=== PATIENT | female | born 1960 | race Caucasian/White ===

== ENCOUNTER → 2017-09-30 07:58 | Emergency (ER) | payer OTHER ==
[~2017-09-30] VITALS: Ht 157.5 cm; Wt 56.7 kg
[~2017-09-30 07:58] MED LIST: ACET325 PO; ALBU90OI INH; ANORO ELLIPTA1 EACH; BUSP5 PO; Bactrim Ds Tab1 EACH PO; CRUTCH3 USE; ESCI20; ESCI20 PO; LAMO100 PO; LORA.5 PO; MONT10T; Mucinex600 MG PO; OXYACE5T PO; PHENY100ER PO; PRAM.5 PO; PROM25 PO; Prednisone20 MG PO; RANI150 PO; TIOT18 INH; VARE1 PO; Ventolin/Prove6.7 GM INH; Zithromax250 MG PO
== END | disposition home or self-care (01) ==
LOC: ER 07:58
DX: J44.1 Chronic obstructive pulmonary disease with (acute) exacerbation (principal); G40.909 Epilepsy, unspecified, not intractable, without status epilepticus; F17.200 Nicotine dependence, unspecified, uncomplicated; Z79.899 Other long term (current) drug therapy
CPT/HCPCS: 71046; 94640; 99283

== ENCOUNTER 2017-10-17 12:10 | Emergency (ER) | payer OTHER ==
[~2017-10-17] VITALS: Ht 157.5 cm; Wt 55.8 kg
[2017-10-17 12:43] LABS: BASOPHILS ABSOLUTE AUTO 0.04 K/mm3 (0.00-0.23); BASOPHILS PERCENT AUTO 0 % (0-2); EOSINOPHILS ABSOLUTE AUTO 0.03 K/mm3 (0.00-0.68); EOSINOPHILS PERCENT AUTO 0 % (0-6); Hematocrit 39.1 % (33.0-51.0); Hemoglobin 12.8 g/dL (11.5-16.0); IMMATURE GRAN ABSOLUTE AUTO 0.05 K/mm3 (0.00-0.10); IMMATURE GRAN PERCENT AUTO 0 % (0-1); LYMPHOCYTES ABSOLUTE AUTO 1.74 K/mm3 (0.84-5.20); LYMPHOCYTES PERCENT AUTO 12 % (21-46); MONOCYTES ABSOLUTE AUTO 0.78 K/mm3 (0.16-1.47); MONOCYTES PERCENT AUTO 5 % (4-13); Mean Corpuscular HGB 30.2 pg (26.0-34.0); Mean Corpuscular HGB Conc 32.7 g/dL (31.5-36.5); Mean Corpuscular Volume 92 fL (80-100); Mean Platelet Volume 9.7 fL (9.1-12.4); NEUTROPHILS ABSOLUTE AUTO 12.41 K/mm3 (1.96-9.15); NEUTROPHILS PERCENT AUTO 82 % (41-73); Platelet Count 201 K/mm3 (150-400); RDW Coefficient Variation 14.2 % (11.7-14.2); RDW Standard Deviation 48.5 fL (35.1-46.3); Red Blood Cell Count 4.24 M/mm3 (3.80-5.20); White Blood Cell Count 15.05 K/mm3 (4.00-11.30)
[2017-10-17 13:11] LABS: Alanine Aminotransfer (ALT/SGP 28 U/L (12-78); Albumin, Blood 3.5 g/dL (3.4-5.0); Albumin/Globulin Ratio 1.1 (0.8-1.8); Alk Phos 92 U/L (50-136); Anion Gap 7 mmol/L (6-16); Aspartate Aminotrans (AST/SGOT 26 U/L (12-37); Bilirubin, Total 0.4 mg/dL (0.1-1.0); Blood Urea Nitrogen 16 mg/dL (8-24); Bun/Creatinine Ratio 19.4 (12.0-20.0); CO2, Blood 29 mmol/L (21-32); Calcium, Blood 8.6 mg/dL (8.5-10.1); Chloride, Blood 109 mmol/L (98-108); Creatinine, Blood 0.83 mg/dL (0.40-1.00); Globulin, Blood 3.3 g/dL (2.2-4.0); Glomerular Filtration Rate >60 (60-); Glucose, Blood 104 mg/dL (70-99); Potassium, Blood 3.4 mmol/L (3.5-5.5); Sodium, Blood 145 mmol/L (136-145); Total Protein, Blood 6.8 g/dL (6.4-8.2); Troponin I 0.016 ng/mL (0.000-0.040)
[2017-10-17 13:22] LABS: PCO2 Arterial 44.8 mmHg (35-45); PO2 Arterial 74.8 mmHg (80-100)
[2017-10-17] MEDS ORDERED: Prednisone20 MG PO (13:27)
== END 2017-10-17 14:00 | disposition home or self-care (01) ==
LOC: ER 12:10
PROVIDERS: Emergency Medicine
DX: J44.1 Chronic obstructive pulmonary disease with (acute) exacerbation (principal); Z79.899 Other long term (current) drug therapy; Z79.52 Long term (current) use of systemic steroids; F17.200 Nicotine dependence, unspecified, uncomplicated
CPT/HCPCS: 36600; 71045; 80053; 82803; 84484; 85025; 93005; 93010; 94644; 99285-25

== ENCOUNTER 2018-05-17 03:35 | Inpatient (IN) | payer OTHER ==
[~2018-05-17] VITALS: Ht 157.5 cm; Wt 56.0 kg
[~2018-05-17 03:35] MED LIST changes: -ANORO ELLIPTA1 EACH; +ANORO ELLIPTA1 EACH INH; -ESCI20; -LAMO100 PO; +Lamictal150 MG PO; -MONT10T; +MONT10T PO
[2018-05-17 03:53] LABS: BASOPHILS ABSOLUTE AUTO 0.03 K/mm3 (0.00-0.23); BASOPHILS PERCENT AUTO 0 % (0-2); EOSINOPHILS ABSOLUTE AUTO 0.02 K/mm3 (0.00-0.68); EOSINOPHILS PERCENT AUTO 0 % (0-6); Hematocrit 40.4 % (33.0-51.0); IMMATURE GRAN ABSOLUTE AUTO 0.01 K/mm3 (0.00-0.10); IMMATURE GRAN PERCENT AUTO 0 % (0-1); LYMPHOCYTES ABSOLUTE AUTO 1.83 K/mm3 (0.84-5.20); LYMPHOCYTES PERCENT AUTO 25 % (21-46); MONOCYTES ABSOLUTE AUTO 0.56 K/mm3 (0.16-1.47); MONOCYTES PERCENT AUTO 8 % (4-13); Mean Corpuscular HGB 29.9 pg (26.0-34.0); Mean Corpuscular HGB Conc 32.2 g/dL (31.5-36.5); Mean Corpuscular Volume 93 fL (80-100); NEUTROPHILS PERCENT AUTO 67 % (41-73); Platelet Count 197 K/mm3 (150-400); RDW Coefficient Variation 13.9 % (11.7-14.2); RDW Standard Deviation 47.7 fL (35.1-46.3); Red Blood Cell Count 4.35 M/mm3 (3.80-5.20); White Blood Cell Count 7.35 K/mm3 (4.00-11.30)
[2018-05-17 03:58] LABS: Base Excess Venous 1.6 mmol/L; Bicarbonate Venous 24.9 mmol/L (24.0-30.0); PCO2 Venous 53.1 mmHg (38-42); PO2 Venous 77.4 mmHg (38-42); pH Blood Venous 7.32 (7.34-7.37)
[2018-05-17 04:18] LABS: Alanine Aminotransfer (ALT/SGP 26 U/L (12-78); Albumin, Blood 3.7 g/dL (3.4-5.0); Albumin/Globulin Ratio 1.2 (0.8-1.8); Alk Phos 95 U/L (50-136); Anion Gap 8 mmol/L (6-16); Aspartate Aminotrans (AST/SGOT 20 U/L (12-37); Bilirubin, Total 0.2 mg/dL (0.1-1.0); Blood Urea Nitrogen 15 mg/dL (8-24); Bun/Creatinine Ratio 15.6 (12.0-20.0); CO2, Blood 28 mmol/L (21-32); Calcium, Blood 8.3 mg/dL (8.5-10.1); Chloride, Blood 111 mmol/L (98-108); Creatinine, Blood 0.96 mg/dL (0.40-1.00); Globulin, Blood 3.1 g/dL (2.2-4.0); Glomerular Filtration Rate >60 (60-); Glucose, Blood 105 mg/dL (70-99); Potassium, Blood 4.5 mmol/L (3.5-5.5); Sodium, Blood 147 mmol/L (136-145); Total Protein, Blood 6.8 g/dL (6.4-8.2); Troponin I 0.159 ng/mL (0.000-0.040)
[2018-05-17] MEDS ORDERED: OXYGEN (04:52)
--- NOTE | 2018-05-17 05:52 | NUR ---
transfer report from Ania PATTERSON on 58 year old Female being admitted with elevated troponin and copd exacerbation. will be tele obs , full code , droplet isolation, resp panel ordered.
[2018-05-17] MEDS ORDERED: Albuterol2.5 MG/0.5 INH (08:39)
[2018-05-17] MEDS ORDERED: PROAIR RESPICL90 MCG INH (08:40)
[2018-05-17] MEDS ORDERED: BUSP15 PO (08:42)
[2018-05-17] MEDS ORDERED: DICLOFENAC SOD100 G1 TOP (08:44)
[2018-05-17] MEDS ORDERED: Lexapro 2020 MG PO (08:45)
[2018-05-17] MEDS ORDERED: Flovent Disku100 MCG INH (08:46)
[2018-05-17 10:40] LABS: Adenovirus Not Detected (NOT DETECT); Bordetella pertussis Not Detected (NOT DETECT); Chlamydophila pneumoniae Not Detected (NOT DETECT); Coronavirus 229E Not Detected (NOT DETECT); Coronavirus HKU1 Not Detected (NOT DETECT); Coronavirus NL63 Not Detected (NOT DETECT); Coronavirus OC43 Not Detected (NOT DETECT); Human Metapneumovirus Not Detected (NOT DETECT); Human Rhinovirus/Enterovirus Not Detected (NOT DETECT); Influenza A Not Detected (NOT DETECT); Influenza A/2009-H1 Not Detected (NOT DETECT); Influenza A/H1 Not Detected (NOT DETECT); Influenza A/H3 Not Detected (NOT DETECT); Influenza B Not Detected (NOT DETECT); Mycoplasma pneumoniae Not Detected (NOT DETECT); Parainfluenza Virus 1 Not Detected (NOT DETECT); Parainfluenza Virus 2 Not Detected (NOT DETECT); Parainfluenza Virus 3 Not Detected (NOT DETECT); Parainfluenza Virus 4 Not Detected (NOT DETECT); Respiratory Syncytial Virus Not Detected (NOT DETECT)
--- NOTE | 2018-05-17 11:40 | NUR ---
ECHOCARDIOGRAM COMPLETE
[2018-05-17 13:18] LABS: Troponin I 2.58 ng/mL (0.000-0.040)
[2018-05-17 13:57] LABS: Creatine Kinase MB 14.8 ng/mL (0.0-3.6); Creatine Kinase MB Index 5.1 (0.0-4.0)
[2018-05-17 14:26] LABS: PCO2 Arterial 44.3 mmHg (35-45); PO2 Arterial 79.4 mmHg (80-100); pH Blood Arterial 7.39 (7.35-7.45)
--- NOTE | 2018-05-17 15:56 | NUR ---
1531 PT TRANSFERED TO CORPORATE RISK ANALYST VIA W/C WITH 3L O2 NC.
--- NOTE | 2018-05-17 16:17 | NUR ---
REPORT GIVEN TO Rachelle GARCIA IN PCU.
--- NOTE | 2018-05-17 18:32 | NUR ---
Shift Summary No acute changes since pt arrived to unit from at approx 1645. VSS. In no apparent sign of distress. Pt is A&Ox4. Calls appropriately. R radial access site has no s/sx of bleed or hematoma at this time. R radial TR band in place as well as wrist immobilizer. Pt repositions self and is compilant with R wrist restrictions. Breathing is e/u on RA - pt reports that she wears 2L O2 NC at bedtime at home. SR on tele. Pt is currently resting in bed with call light within reach. Denies any further questions, complaints or requests at this time. Will continue to monitor until report is given to kal PATTERSON. Okay to start deflating TR band at 1845 per orders.
[2018-05-17 21:05] LABS: Creatine Kinase MB 21.4 ng/mL (0.0-3.6); Creatine Kinase MB Index 6.1 (0.0-4.0)
--- NOTE | 2018-05-18 06:05 | NUR ---
SHIFT SUMMARY PT A&O X4, CALM AND COOPERATIVE. R RADIAL ACCESS SITE WNL, NO BLEEDING, NO HEMATOMA, CLEAR DRESSING COVERING SITE, ARM BOARD IN PLACE. PT INSTRUCTED NOT TO USE OR BEND R ARM. PT'S TROPONIN OF 6.23 CALLED TO MD DE LA ROSA W/ NO ORDERS GIVEN. NO PT C/O CP T/O SHIFT. NO PAIN OR DISCOMFORT OF ANY KIND. PT C/O SOB W/ AMBULATION INTO BATHROOM. PT WEARING 2L NC. LUNG SOUNDS DIM T/O. MONITOR SHOWS NSR W/ OCCASSIONAL PACING. VSS. WILL CONTINUE TO MONITOR AND PROVIDE CARE UNTIL REPORT OFF TO DAY SHIFT RN.
[2018-05-18 07:03] LABS: BASOPHILS ABSOLUTE AUTO 0.01 K/mm3 (0.00-0.23); BASOPHILS PERCENT AUTO 0 % (0-2); EOSINOPHILS PERCENT AUTO 0 % (0-6); Hematocrit 39.3 % (33.0-51.0); Hemoglobin 12.7 g/dL (11.5-16.0); IMMATURE GRAN ABSOLUTE AUTO 0.05 K/mm3 (0.00-0.10); IMMATURE GRAN PERCENT AUTO 0 % (0-1); LYMPHOCYTES ABSOLUTE AUTO 0.55 K/mm3 (0.84-5.20); LYMPHOCYTES PERCENT AUTO 5 % (21-46); MONOCYTES ABSOLUTE AUTO 0.39 K/mm3 (0.16-1.47); MONOCYTES PERCENT AUTO 3 % (4-13); Mean Corpuscular HGB 29.9 pg (26.0-34.0); Mean Corpuscular HGB Conc 32.3 g/dL (31.5-36.5); Mean Corpuscular Volume 93 fL (80-100); Mean Platelet Volume 10.2 fL (9.1-12.4); NEUTROPHILS PERCENT AUTO 91 % (41-73); Platelet Count 197 K/mm3 (150-400); RDW Coefficient Variation 14.4 % (11.7-14.2); RDW Standard Deviation 49.1 fL (35.1-46.3); Red Blood Cell Count 4.25 M/mm3 (3.80-5.20)
[2018-05-18 07:23] LABS: Alanine Aminotransfer (ALT/SGP 26 U/L (12-78); Albumin, Blood 3.6 g/dL (3.4-5.0); Albumin/Globulin Ratio 1.2 (0.8-1.8); Alk Phos 70 U/L (50-136); Anion Gap 6 mmol/L (6-16); Aspartate Aminotrans (AST/SGOT 41 U/L (12-37); Bilirubin, Total 0.2 mg/dL (0.1-1.0); Blood Urea Nitrogen 15 mg/dL (8-24); Bun/Creatinine Ratio 21.5 (12.0-20.0); CO2, Blood 29 mmol/L (21-32); Calcium, Blood 8.6 mg/dL (8.5-10.1); Chloride, Blood 108 mmol/L (98-108); Glomerular Filtration Rate >60 (60-); Glucose, Blood 136 mg/dL (70-99); Potassium, Blood 4.4 mmol/L (3.5-5.5); Sodium, Blood 143 mmol/L (136-145); Total Protein, Blood 6.6 g/dL (6.4-8.2)
--- NOTE | 2018-05-18 16:01 | NUR ---
Transfer: No acute changes since initial shift assessment (see shift assessment intervention for detailed assessment). VSS. In no apparent sign of distress. Pt has been experiencing some dyspnea w/exertion, and discussed with RT - plan is to place pt on 2L O2 NC w/activity to see if this helps with dyspnea, and Dr. Valencia ordered breathing treatments scheduled rather than PRN. Pt at time of transfer states that her breathing was feeling better when compared to the start of shift. Pt denies any other complaints t/o the shift. Family with pt at time of transfer. Pt transferred with PIECE MEAT TRIMMER via wheelchair with all belongings in hand. Pt denies any other questions or requests at time of transfer. Report called to Kerrie Calvert RN.
--- NOTE | 2018-05-18 17:02 | NUR ---
SHIFT SUMMARY NO ACUTE CONCERNS AT THIS TIME. PATIENT HAS TRANSFERRED FROM PCU. PATIENT HAS HIGH TROPONINS.
[2018-05-19 04:50] LABS: BASOPHILS ABSOLUTE AUTO 0.01 K/mm3 (0.00-0.23); BASOPHILS PERCENT AUTO 0 % (0-2); EOSINOPHILS PERCENT AUTO 0 % (0-6); Hematocrit 38.4 % (33.0-51.0); Hemoglobin 12.6 g/dL (11.5-16.0); IMMATURE GRAN ABSOLUTE AUTO 0.11 K/mm3 (0.00-0.10); IMMATURE GRAN PERCENT AUTO 1 % (0-1); LYMPHOCYTES ABSOLUTE AUTO 0.41 K/mm3 (0.84-5.20); LYMPHOCYTES PERCENT AUTO 3 % (21-46); MONOCYTES ABSOLUTE AUTO 0.39 K/mm3 (0.16-1.47); MONOCYTES PERCENT AUTO 3 % (4-13); Mean Corpuscular HGB 30.1 pg (26.0-34.0); Mean Corpuscular HGB Conc 32.8 g/dL (31.5-36.5); Mean Corpuscular Volume 92 fL (80-100); Mean Platelet Volume 10.6 fL (9.1-12.4); NEUTROPHILS ABSOLUTE AUTO 12.53 K/mm3 (1.96-9.15); NEUTROPHILS PERCENT AUTO 93 % (41-73); Platelet Count 197 K/mm3 (150-400); RDW Coefficient Variation 14.4 % (11.7-14.2); RDW Standard Deviation 48.9 fL (35.1-46.3); Red Blood Cell Count 4.18 M/mm3 (3.80-5.20); White Blood Cell Count 13.45 K/mm3 (4.00-11.30)
--- NOTE | 2018-05-19 04:55 | NUR ---
*SHIFT SUMMARY* PATIENT IS ALERT AND ORIENTED. PATIENT DID NOT SLEEP MUCH THROUGHOUT THE NIGHT. THIS AM PATIENT ASKED IF SHE COULD POSSIBLY GET SOMETHING FOR SLEEP TOMORROW. PT STATES SHE TAKES MELATONIN AT HOME AND IT USUALLY HELPS. OXYGEN SATURATIONS MAINTAINED THROUGHOUT THE NIGHT. NO SOB NOTED. RR EQUAL AND UNLABORED. THIS RN CALLED HOSPITALIST TO INFORM A CHANGE IN RHYTHM, PATIENT'S RHYTHM STRIP ON 05/17/18 WAS SR AND 05/18/18 WAS COMPLETE A. PACED. PATIENT DID NOT REPORT ANY CHEST PAIN THROUGHOUT THE NIGHT. NO NEW ORDERS OBTAINED. CALL LIGHT WITHIN REACH, BED LOWERED AND LOCKED.
[2018-05-19 09:16] LABS: CHOL/HDL RATIO 2.1; Cholesterol 179 mg/dL (50-200); HDL Cholesterol 85 mg/dL (>39); LDL/HDL RATIO 0.9; Low Density Lipoprotein Chol 80 mg/dL (0-110); Triglycerides 71 mg/dL (30-160); Very Low Density Lipoprot Chol 14 mg/dL (6-32)
--- NOTE | 2018-05-19 18:01 | NUR ---
SHIFT SUMMARY PATIENT PLEASANT. SHE HAS BEEN STARTED ON MEDICAL MANAGEMENT OF HER CARDIAC AND HER RESPIRATORY SYSTEM. PATIENT HAS BEEN STARTED ON HER BLOOD PRESSURE MEDICATIONS AND HAS ALSO BEEN ON TELEMETRY. SHE HAS GONE FROM NORMAL SINUS RHYTHM TO PACED AND BACK ALL DAY. NO ACUTE CHANGES.
--- NOTE | 2018-05-20 05:15 | NUR ---
*SHIFT SUMMARY* PATIENT IS ALERT AND ORIENTED. INDEPENDENT TO BATHROOM. USES CALL LIGHT APPROPRIATELY. ON ROOM AIR. RESPIRATIONS EQUAL AND UNLABORED. VITALS STABLE. NO COMPLAINTS OF PAIN. PATIENT DID NOT SLEEP MUCH THROUGHOUT THE NIGHT. CALL LIGHT WITHIN REACH, BED LOWERED AND LOCKED.
[2018-05-20 05:29] LABS: BASOPHILS ABSOLUTE AUTO 0.02 K/mm3 (0.00-0.23); BASOPHILS PERCENT AUTO 0 % (0-2); EOSINOPHILS PERCENT AUTO 0 % (0-6); Hemoglobin 12.6 g/dL (11.5-16.0); IMMATURE GRAN ABSOLUTE AUTO 0.05 K/mm3 (0.00-0.10); IMMATURE GRAN PERCENT AUTO 1 % (0-1); LYMPHOCYTES ABSOLUTE AUTO 1.97 K/mm3 (0.84-5.20); LYMPHOCYTES PERCENT AUTO 23 % (21-46); MONOCYTES ABSOLUTE AUTO 0.65 K/mm3 (0.16-1.47); MONOCYTES PERCENT AUTO 8 % (4-13); Mean Corpuscular HGB 29.7 pg (26.0-34.0); Mean Corpuscular HGB Conc 32.3 g/dL (31.5-36.5); Mean Corpuscular Volume 92 fL (80-100); Mean Platelet Volume 10.4 fL (9.1-12.4); NEUTROPHILS ABSOLUTE AUTO 5.95 K/mm3 (1.96-9.15); NEUTROPHILS PERCENT AUTO 69 % (41-73); Platelet Count 200 K/mm3 (150-400); RDW Coefficient Variation 14.5 % (11.7-14.2); RDW Standard Deviation 49.1 fL (35.1-46.3); Red Blood Cell Count 4.24 M/mm3 (3.80-5.20); White Blood Cell Count 8.64 K/mm3 (4.00-11.30)
[2018-05-20 05:50] LABS: Albumin, Blood 3.4 g/dL (3.4-5.0); Anion Gap 7 mmol/L (6-16); Blood Urea Nitrogen 17 mg/dL (8-24); Bun/Creatinine Ratio 21.2 (12.0-20.0); CO2, Blood 31 mmol/L (21-32); Calcium, Blood 8.5 mg/dL (8.5-10.1); Chloride, Blood 107 mmol/L (98-108); Glomerular Filtration Rate >60 (60-); Glucose, Blood 99 mg/dL (70-99); Phosphorus, Blood 2.7 mg/dL (2.5-4.9); Potassium, Blood 3.1 mmol/L (3.5-5.5); Sodium, Blood 145 mmol/L (136-145)
[2018-05-20] MEDS ORDERED: Acetaminophen325 M1 PO (09:19)
[2018-05-20] MEDS ORDERED: ASPI81CH PO (09:20)
[2018-05-20] MEDS ORDERED: ATOR20 PO (09:20)
[2018-05-20] MEDS ORDERED: Cough Formula118 ML PO (09:22)
[2018-05-20] MEDS ORDERED: DOCU100 PO (09:23)
[2018-05-20] MEDS ORDERED: FAMO20 PO (09:23)
[2018-05-20] MEDS ORDERED: METO25 PO (09:24)
[2018-05-20] MEDS ORDERED: PRED20 PO (09:26)
--- NOTE | 2018-05-20 11:25 | NUR ---
REVIEW D'C W/PATIENT WHO IS LEAVING AROUND 2PM. AWARE TO MAKE F/U APPT W/ FOR THIS WEEK OR EARLY NEXT WEEK. HAS NUMBER FOR CARDIAC REHAB AND AWARE TO MAKE APPT WITH THEM. AWARE HAS NEW MEDS AT [facility]. REVIEW MEDS W/ WHEN TO TAKE AND POSSIBLE SIDE EFFECTS. AWARE CAN RETRUN TO E.R. IF NEEDED. NO HEAVY LIFTING ESPECIALLY WITH RT ARM. DISCUSSED N-STEMI HEART ATTACK. IS AWARE OF COPD DIAGNOSIS. FORMER SMOKER. ANSWER ALL QUESTIONS. WHEN READY WILL GET WHEELCHAIR RIDE TO POV.
--- NOTE | 2018-05-20 13:10 | NUR ---
Met pt in bed and her nurse in the room attending to her nedds. Ptreports doing well and may go home today or nex. Encouraged pt , offered spiritual support and prayers
--- NOTE | 2018-05-20 14:13 | NUR ---
GIVEN REHAB APPT TIME OF 05/30 @ 8AM AND DIRECTIONS GIVEN. WAITING FOR RIDE.
--- NOTE | 2018-05-20 14:23 | NUR ---
patient in w/c with orchid hand to pov w/adult female.
== END 2018-05-20 14:20 | disposition home or self-care (01) | DRG 189 ==
LOC: ER 03:35 → MEDS 03:36 → PCU 16:44 → MEDS 05-18 15:26 → ENPENDDIS 05-20 09:00 → MEDS 05-20 14:20
PROVIDERS: Emergency Medicine; Family Medicine; Internal Medicine; ADMIT Internal Medicine
PROC: 4A023N7 Measurement of Cardiac Sampling and Pressure, Left Heart, Percutaneous Approach (ICD-10-PCS; principal; 2018-05-17)
PROC: B2111ZZ Fluoroscopy of Multiple Coronary Arteries using Low Osmolar Contrast (ICD-10-PCS; 2018-05-17)
DX: J96.21 Acute and chronic respiratory failure with hypoxia (principal); I21.4 Non-ST elevation (NSTEMI) myocardial infarction; E87.0 Hyperosmolality and hypernatremia; J44.1 Chronic obstructive pulmonary disease with (acute) exacerbation; E87.6 Hypokalemia; E87.8 Other disorders of electrolyte and fluid balance, not elsewhere classified; G89.29 Other chronic pain; M54.5 Low back pain; F41.9 Anxiety disorder, unspecified; Z87.891 Personal history of nicotine dependence; Z79.52 Long term (current) use of systemic steroids; Z79.899 Other long term (current) drug therapy; Z95.0 Presence of cardiac pacemaker
CPT/HCPCS: 36415; 36600; 71045; 71046; 80053; 80061; 80069; 82550; 82553; 82803; 83880; 84145; 84484; 85025; 85027; 85379; 87070; 87205; 87486; 87581; 87633; 87798; 90686; 93005; 93010; 93458; 94010; 94640; 94644; 94664; 94667; 94760; 94761; 96365; 96366; 96372; 96376; 98960; 99152; 99153; 99285-25; C1769; C1894; C8923; G0008; G0378; J0456; J1644; J1650; J2250; J2930; J3010; J7030; J7040; J7050; Q9957; Q9967

== ENCOUNTER 2018-10-01 05:29 | Observation (INO) | payer OTHER ==
[~2018-10-01] VITALS: Ht 157.5 cm; Wt 52.8 kg
[~2018-10-01 05:29] MED LIST changes: +ALBU2.5V5 NEB; +AMLO5 PO; +ATOR20 PO; +Acetaminophen325 M1 PO; +Aspirin EC81 MG PO; +BUSP15 PO; +Cough Formula118 ML PO; +DICLOFENAC SOD100 G1 TOP; +DOCU100 PO; +FAMO20 PO; +Flovent Disku100 MCG INH; +Isosorbide Mono30 MG PO; +Lexapro 2020 MG PO; +METO25 PO; +OXYGEN; +PRED20 PO; +PROAIR RESPICL90 MCG INH
[2018-10-01 05:46] LABS: BASOPHILS ABSOLUTE AUTO 0.04 K/mm3 (0.00-0.23); BASOPHILS PERCENT AUTO 1 % (0-2); EOSINOPHILS ABSOLUTE AUTO 0.01 K/mm3 (0.00-0.68); EOSINOPHILS PERCENT AUTO 0 % (0-6); Hematocrit 41.5 % (33.0-51.0); Hemoglobin 13.6 g/dL (11.5-16.0); IMMATURE GRAN ABSOLUTE AUTO 0.02 K/mm3 (0.00-0.10); IMMATURE GRAN PERCENT AUTO 0 % (0-1); LYMPHOCYTES ABSOLUTE AUTO 1.93 K/mm3 (0.84-5.20); LYMPHOCYTES PERCENT AUTO 27 % (21-46); MONOCYTES ABSOLUTE AUTO 0.59 K/mm3 (0.16-1.47); MONOCYTES PERCENT AUTO 8 % (4-13); Mean Corpuscular HGB 29.4 pg (26.0-34.0); Mean Corpuscular HGB Conc 32.8 g/dL (31.5-36.5); Mean Corpuscular Volume 90 fL (80-100); Mean Platelet Volume 10.3 fL (9.1-12.4); NEUTROPHILS ABSOLUTE AUTO 4.56 K/mm3 (1.96-9.15); NEUTROPHILS PERCENT AUTO 64 % (41-73); Platelet Count 182 K/mm3 (150-400); RDW Coefficient Variation 13.3 % (11.7-14.2); RDW Standard Deviation 43.5 fL (35.1-46.3); Red Blood Cell Count 4.63 M/mm3 (3.80-5.20); White Blood Cell Count 7.15 K/mm3 (4.00-11.30)
[2018-10-01] MEDS ORDERED: Isosorbide Mono60 MG PO (05:48)
[2018-10-01] MEDS ORDERED: Bupropion Xl150 MG PO (05:49)
[2018-10-01 06:07] LABS: Alanine Aminotransfer (ALT/SGP 19 U/L (12-78); Albumin/Globulin Ratio 1.3 (0.8-1.8); Alk Phos 108 U/L (50-136); Anion Gap 5 mmol/L (6-16); Aspartate Aminotrans (AST/SGOT 19 U/L (12-37); Bilirubin, Total 0.5 mg/dL (0.1-1.0); Blood Urea Nitrogen 11 mg/dL (8-24); Bun/Creatinine Ratio 14.6 (12.0-20.0); CO2, Blood 31 mmol/L (21-32); Calcium, Blood 8.7 mg/dL (8.5-10.1); Chloride, Blood 109 mmol/L (98-108); Creatinine, Blood 0.75 mg/dL (0.40-1.00); Glomerular Filtration Rate >60 (60-); Glucose, Blood 99 mg/dL (70-99); Potassium, Blood 3.7 mmol/L (3.5-5.5); Sodium, Blood 145 mmol/L (136-145); Troponin I 0.118 ng/mL (0.000-0.040)
--- NOTE | 2018-10-01 17:49 | NUR ---
SUMMARY PT SITTING UP IN BED EATING HER DINNER, PT ADMITTED FROM THE ER FOR COPD AND ELEVATED TROPONIN, PT HAS DENIED ANY CHEST PAIN SINCE ADMIT, PT IS ALERT AND ORIENTED AND INDEPENDENT IN THE ROOM, STATES SHE WEARS OXYGEN AT NIGHT, ON ROOM AIR AT THIS TIME, NO DISTRESS, PT ORIENTED TO THE ROOM AND CALL SYSTEM, VSS, NO ACUTE CHANGES, WILL CONT TO MONITOR
[2018-10-01] MEDS ORDERED: PRAM.5 PO (22:16)
[2018-10-01] MEDS ORDERED: ESCI20 PO (22:16)
[2018-10-02 05:37] LABS: BASOPHILS ABSOLUTE AUTO 0.02 K/mm3 (0.00-0.23); BASOPHILS PERCENT AUTO 0 % (0-2); EOSINOPHILS PERCENT AUTO 0 % (0-6); Hematocrit 40.9 % (33.0-51.0); Hemoglobin 13.5 g/dL (11.5-16.0); IMMATURE GRAN ABSOLUTE AUTO 0.06 K/mm3 (0.00-0.10); IMMATURE GRAN PERCENT AUTO 0 % (0-1); LYMPHOCYTES ABSOLUTE AUTO 0.45 K/mm3 (0.84-5.20); LYMPHOCYTES PERCENT AUTO 3 % (21-46); MONOCYTES PERCENT AUTO 2 % (4-13); Mean Corpuscular HGB 29.5 pg (26.0-34.0); Mean Corpuscular Volume 89 fL (80-100); Mean Platelet Volume 10.5 fL (9.1-12.4); NEUTROPHILS ABSOLUTE AUTO 12.93 K/mm3 (1.96-9.15); NEUTROPHILS PERCENT AUTO 95 % (41-73); Platelet Count 188 K/mm3 (150-400); RDW Coefficient Variation 13.3 % (11.7-14.2); RDW Standard Deviation 43.6 fL (35.1-46.3); Red Blood Cell Count 4.58 M/mm3 (3.80-5.20); White Blood Cell Count 13.66 K/mm3 (4.00-11.30)
[2018-10-02 06:04] LABS: Anion Gap 7 mmol/L (6-16); Blood Urea Nitrogen 11 mg/dL (8-24); Bun/Creatinine Ratio 18.2 (12.0-20.0); CO2, Blood 29 mmol/L (21-32); Calcium, Blood 8.9 mg/dL (8.5-10.1); Chloride, Blood 108 mmol/L (98-108); Creatinine, Blood 0.61 mg/dL (0.40-1.00); Glomerular Filtration Rate >60 (60-); Glucose, Blood 149 mg/dL (70-99); Potassium, Blood 3.6 mmol/L (3.5-5.5); Sodium, Blood 144 mmol/L (136-145)
--- NOTE | 2018-10-02 07:11 | NUR ---
sob with activity, needed extra o2 if she tried to get up, call light in reach, provided medication prescribed bsr given to returning day shift
--- NOTE | 2018-10-02 10:31 | NUR ---
Echocardiogram completed.
[2018-10-02] MEDS ORDERED: PRED20 PO (16:13)
[2018-10-02] MEDS ORDERED: CARV6.25 (16:16)
[2018-10-02] MEDS ORDERED: ALBU2.5V5 INH (16:18)
--- NOTE | 2018-10-02 16:47 | NUR ---
SUMMARY/DISCHARGE PT DISCHARGED TO HOME, [facility] HAS DELIVERED PORTABLE OXYGEN TO HER, PT VERBALIZED UNDERSTANDING OF DISCHARGE INSTRUCTIONS REGARDING MEDICATIONS AND FOLLOW UP APPOINTMENTS, PT TAKEN OUT SAFELY VIA WHEELCHAIR WITH HER DAUGHTER
== END 2018-10-02 16:49 | disposition home or self-care (01) ==
LOC: ER 05:29 → ERHOLD 05:30 → MEDS 05:30 → ERHOLD 08:42 → ER 08:42 → MEDS 13:04 → ERHOLD 13:04 → ENPENDDIS 10-02 16:13 → MEDS 10-02 16:49
PROVIDERS: Emergency Medicine; ADMIT Internal Medicine
DX: J96.01 Acute respiratory failure with hypoxia (principal); J44.1 Chronic obstructive pulmonary disease with (acute) exacerbation; I10 Essential (primary) hypertension; F41.9 Anxiety disorder, unspecified; F32.9 Major depressive disorder, single episode, unspecified; G40.909 Epilepsy, unspecified, not intractable, without status epilepticus; F17.200 Nicotine dependence, unspecified, uncomplicated; Z95.0 Presence of cardiac pacemaker; Z79.899 Other long term (current) drug therapy; Z79.82 Long term (current) use of aspirin
CPT/HCPCS: 36415; 71045; 80048; 80053; 84484; 85025; 93005; 93010; 93308; 94640; 94664; 94667; 94760; 94761; 98960; 99285-25; 99407; G0378; J1650; J2930; J7120

== ENCOUNTER 2018-10-03 03:29 | Observation (INO) | payer OTHER ==
[~2018-10-03] VITALS: Ht 157.5 cm; Wt 56.7 kg
[~2018-10-03 03:29] MED LIST changes: +ALBU2.5V5 INH; +Bupropion Xl150 MG PO; +CARV6.25; +Isosorbide Mono60 MG PO
[2018-10-03 03:47] LABS: BASOPHILS ABSOLUTE AUTO 0.02 K/mm3 (0.00-0.23); BASOPHILS PERCENT AUTO 0 % (0-2); EOSINOPHILS PERCENT AUTO 0 % (0-6); Hemoglobin 13.9 g/dL (11.5-16.0); IMMATURE GRAN ABSOLUTE AUTO 0.12 K/mm3 (0.00-0.10); IMMATURE GRAN PERCENT AUTO 1 % (0-1); LYMPHOCYTES ABSOLUTE AUTO 2.36 K/mm3 (0.84-5.20); LYMPHOCYTES PERCENT AUTO 12 % (21-46); MONOCYTES ABSOLUTE AUTO 1.34 K/mm3 (0.16-1.47); MONOCYTES PERCENT AUTO 7 % (4-13); Mean Corpuscular HGB Conc 32.3 g/dL (31.5-36.5); Mean Platelet Volume 10.5 fL (9.1-12.4); NEUTROPHILS ABSOLUTE AUTO 16.44 K/mm3 (1.96-9.15); NEUTROPHILS PERCENT AUTO 81 % (41-73); Platelet Count 254 K/mm3 (150-400); RDW Coefficient Variation 13.7 % (11.7-14.2); RDW Standard Deviation 46.4 fL (35.1-46.3); Red Blood Cell Count 4.63 M/mm3 (3.80-5.20); White Blood Cell Count 20.28 K/mm3 (4.00-11.30)
[2018-10-03 03:48] LABS: Mean Corpuscular Volume 93 fL (80-100)
[2018-10-03 04:05] LABS: Alanine Aminotransfer (ALT/SGP 22 U/L (12-78); Albumin/Globulin Ratio 1.2 (0.8-1.8); Alk Phos 109 U/L (50-136); Anion Gap 4 mmol/L (6-16); Aspartate Aminotrans (AST/SGOT 20 U/L (12-37); Bilirubin, Total 0.4 mg/dL (0.1-1.0); Blood Urea Nitrogen 18 mg/dL (8-24); Bun/Creatinine Ratio 23.5 (12.0-20.0); CO2, Blood 33 mmol/L (21-32); Calcium, Blood 9.1 mg/dL (8.5-10.1); Chloride, Blood 107 mmol/L (98-108); Creatinine, Blood 0.77 mg/dL (0.40-1.00); Globulin, Blood 3.2 g/dL (2.2-4.0); Glomerular Filtration Rate >60 (60-); Glucose, Blood 73 mg/dL (70-99); Sodium, Blood 144 mmol/L (136-145); Total Protein, Blood 7.2 g/dL (6.4-8.2)
--- NOTE | 2018-10-03 14:47 | NUR ---
PT ADMITTED FROM ER AND ASSISTED TO BED BY AMBULATION WITH STAND BY ASSIST. PT IS A/O X 3 AND DENIES PAIN. PT IS ON 2LPM O2 VIA N.C AND SHOWS NO S/S OF RESPIRATORY DISTRESS. PT WAS ORIENTED TO ROOM AND CALL LIGHT WELL NURSING STAFF AND VERBALIZES AN UNDERSTANDING OD USE OF CALL LIGHT. PT AGREES THAT USING THE BSC FOR TOILETING IS BEST FOR NOW. PT STATES SHE HAS A DAUGHTER WHO IS AWARE SHE IS HERE AND LIVES LOCALLY. PT IS RESTING IN BED AND HAS NO QUESTIONS AT THIS TIME.
--- NOTE | 2018-10-03 16:54 | NUR ---
SHIFT SUMMARY: AFTER PT WAS ADMITTED FROM ER SHE WAS ASSISTED TO BSC X 1 ASSIST WITH NO SOB OR RESP DIFFICULTY. DRINKS AND SNACKS WERE OFFERED TO PT AND SHE ACCEPTED BUT STATED SHE HASNT HAD MUCH OF AN APPETITE. DAUGHTER IS AT BEDSIDE. PT VERBALIZES AN UNDERSTANDING OF USE OF CALL LIGHT.
--- NOTE | 2018-10-04 01:39 | NUR ---
2300 PT HAVING INCREASED ANXIETY SHE HAS NO HOME MEDICATIONS ORDERED. THIS NURSE CONTACTED [facility] BADILLO AND REVIEWED HOME PSYCH MEDS (PILL BOTTLES FROM HOME AT BEDSIDE AND WERE TAKEN TO PHARMACY FOR LOCK UP BY THIS NURSE) WITH ORDERS RECEIVED.
--- NOTE | 2018-10-04 04:22 | NUR ---
SHIFT SUMMARY: 58 Y/O FEMALE RESTED COMFORTABLY AFTER RECEIVING HER PSYCHOTIC MEDICATIONS LAST NIGHT. PT HAS DYSPNEA WITH VERY SLIGHT ACTIVITY NOTED WITH O2 SATS MAITAINING 91%. ON 2 LITERS PER NASAL CANNULA. PT DENIES PAIN OR NAUSEA. PTS BED LOW POSITION, CALL LIGHT AT SIDE. PTS FAMILY BROUGHT ALL PERSONAL PILL BOTTLES FROM HOME TO BEDSIDE WITH THIS NURSE TAKING ALL MEDS BOTTLES TO PHARMACY FOR LOCKUP WITH RECEIPT PLACED ON CHART FOR PICKUP AT DISCHARGE.
--- NOTE | 2018-10-04 13:52 | NUR ---
DISCHARGE SUMMARY ALL INFORMATION GIVEN TO THE PATIENT AND HER DAUGHTER. PATIENT MEDICATIONS RETRIEVED FROM PHARMACY, NO ACUTE CONCERNS FROM PATIENT OR FAMILY AT TIME OF DISCHARGE. ALL MEDICATIONS WERE SENT TO THE PHARMACY.
== END 2018-10-04 12:10 | disposition home or self-care (01) ==
LOC: ER 03:29 → ERHOLD 03:30 → MEDS 14:10
PROVIDERS: Emergency Medicine; ADMIT Hospitalist
DX: J44.1 Chronic obstructive pulmonary disease with (acute) exacerbation (principal); J96.11 Chronic respiratory failure with hypoxia; F41.9 Anxiety disorder, unspecified; F32.9 Major depressive disorder, single episode, unspecified; G40.909 Epilepsy, unspecified, not intractable, without status epilepticus; Z59.0 Homelessness; Z99.81 Dependence on supplemental oxygen; Z79.899 Other long term (current) drug therapy; Z79.52 Long term (current) use of systemic steroids
CPT/HCPCS: 71045; 80053; 85025; 93005; 93010; 94640; 94644; 94660; 94760; 94761; 96365; 96372; 96372-59; 96375; 99285-25; G0378; J0456; J1650; J2930; J7050; J7512

== ENCOUNTER 2018-10-25 02:16 | Observation (INO) | payer OTHER ==
[~2018-10-25] VITALS: Ht 157.5 cm; Wt 53.6 kg
[2018-10-25 02:29] LABS: BASOPHILS ABSOLUTE AUTO 0.02 K/mm3 (0.00-0.23); BASOPHILS PERCENT AUTO 0 % (0-2); EOSINOPHILS ABSOLUTE AUTO 0.01 K/mm3 (0.00-0.68); EOSINOPHILS PERCENT AUTO 0 % (0-6); Hematocrit 41.7 % (33.0-51.0); Hemoglobin 13.5 g/dL (11.5-16.0); IMMATURE GRAN ABSOLUTE AUTO 0.01 K/mm3 (0.00-0.10); IMMATURE GRAN PERCENT AUTO 0 % (0-1); LYMPHOCYTES ABSOLUTE AUTO 1.62 K/mm3 (0.84-5.20); LYMPHOCYTES PERCENT AUTO 30 % (21-46); MONOCYTES ABSOLUTE AUTO 0.42 K/mm3 (0.16-1.47); MONOCYTES PERCENT AUTO 8 % (4-13); Mean Corpuscular HGB 29.9 pg (26.0-34.0); Mean Corpuscular HGB Conc 32.4 g/dL (31.5-36.5); Mean Corpuscular Volume 93 fL (80-100); NEUTROPHILS ABSOLUTE AUTO 3.33 K/mm3 (1.96-9.15); NEUTROPHILS PERCENT AUTO 62 % (41-73); Platelet Count 211 K/mm3 (150-400); RDW Coefficient Variation 14.4 % (11.7-14.2); RDW Standard Deviation 49.1 fL (35.1-46.3); Red Blood Cell Count 4.51 M/mm3 (3.80-5.20); White Blood Cell Count 5.41 K/mm3 (4.00-11.30)
[2018-10-25 02:46] LABS: Alanine Aminotransfer (ALT/SGP 22 U/L (12-78); Albumin, Blood 3.8 g/dL (3.4-5.0); Albumin/Globulin Ratio 1.2 (0.8-1.8); Alk Phos 90 U/L (50-136); Anion Gap 3 mmol/L (6-16); Aspartate Aminotrans (AST/SGOT 27 U/L (12-37); Bilirubin, Total 0.3 mg/dL (0.1-1.0); Blood Urea Nitrogen 14 mg/dL (8-24); Bun/Creatinine Ratio 17.9 (12.0-20.0); CO2, Blood 31 mmol/L (21-32); Calcium, Blood 8.3 mg/dL (8.5-10.1); Chloride, Blood 111 mmol/L (98-108); Creatinine, Blood 0.78 mg/dL (0.40-1.00); Globulin, Blood 3.1 g/dL (2.2-4.0); Glomerular Filtration Rate >60 (60-); Glucose, Blood 92 mg/dL (70-99); Potassium, Blood 4.3 mmol/L (3.5-5.5); Sodium, Blood 145 mmol/L (136-145); Total Protein, Blood 6.9 g/dL (6.4-8.2)
--- NOTE | 2018-10-25 05:00 | NUR ---
INITIAL ASSESSMENT PATIENT ARRIVED TO UNIT AT 0450. PATIENT ALERT AND ORIENTED X 4, AFEBRILE. PATIENT SLIGHTLY ANXIOUS BUT COOPERATIVE. PATIENT WEAK BUT ABLE TO MOVE ALL EXTREMITIES. PATIENT DENIES PAIN AT THIS TIME AND STATES THAT SHE "JUST FEELS SHORT OF BREATH". PATIENT ON BIPAP, SETTINGS 12/6, 25% FIO2. LUNGS TIGHT WITH EXPIRATORY WHEEZES T/O. LOWER LOBES ALSO NOTED TO HAVE INSPIRATORY COARSENESS. BREATHING IS LABORED. DYSPNEA WITH EXERTION NOTED. PATIENT IN SR, HR 60S TO 70S. BP STABLE. PULSES STRONG. PATIENT HAS PACEMAKER NOTED TO L CHEST WALL. GI WNL. PATIENT STATES LAST BM YESTERDAY. WNL. SCATTERED SCABS NOTED ON BACK. 1 L NS BOLUS REMAINS INFUSING FROM ER. BED LOW, CALL LIGHT IN REACH. PATIENT HAS BEEN ORIENTED TO UNIT, ROOM AND CALL SYSTEM. WILL CONTINUE TO MONITOR PATIENT FREQUENTLY T/O SHIFT.
--- NOTE | 2018-10-25 06:49 | NUR ---
SHIFT SUMMARY PATIENT HAS SLEPT SINCE BEING ADMITTED TO UNIT AND ADMISSION DATA COMPLETE. PATIENT HAS HAD NO COMPLAINTS OF PAIN. PATIENT HAS REMAINED AFEBRILE. PATIENT HAS REMAINED SATTING 90% AND GREATER ON SAME BIPAP SETTINGS. PATIENT REMAINS IN SR, HR 60S TO 70S. ER STATED PATIENT HYPOTENSIVE IN ER. BP HAS REMAINED STABLE IN ICU. GI AND WNL. NO CHANGE TO SKIN. NS INFUSING AT 75 MLS/ HOUR X 1 L. PATIENT ALSO RECEIVING AZITHROMYCIN IV AT THIS TIME. PATIENT CURRENTLY HAS NO COMPLAINTS. BED LOW, CALL LIGHT IN REACH. [facility] DAY SHIFT NURSE SHORTLY.
[2018-10-25 07:55] LABS: Hematocrit 39.9 % (33.0-51.0); Mean Corpuscular HGB 30.2 pg (26.0-34.0); Mean Corpuscular HGB Conc 32.6 g/dL (31.5-36.5); Mean Corpuscular Volume 93 fL (80-100); Platelet Count 180 K/mm3 (150-400); RDW Coefficient Variation 14.3 % (11.7-14.2); RDW Standard Deviation 49.7 fL (35.1-46.3); Red Blood Cell Count 4.31 M/mm3 (3.80-5.20); White Blood Cell Count 4.95 K/mm3 (4.00-11.30)
[2018-10-25 08:07] LABS: Alanine Aminotransfer (ALT/SGP 20 U/L (12-78); Albumin, Blood 3.6 g/dL (3.4-5.0); Albumin/Globulin Ratio 1.2 (0.8-1.8); Alk Phos 84 U/L (50-136); Anion Gap 5 mmol/L (6-16); Aspartate Aminotrans (AST/SGOT 20 U/L (12-37); Bilirubin, Total 0.4 mg/dL (0.1-1.0); Blood Urea Nitrogen 14 mg/dL (8-24); CO2, Blood 26 mmol/L (21-32); Calcium, Blood 8.1 mg/dL (8.5-10.1); Chloride, Blood 115 mmol/L (98-108); Creatinine, Blood 0.67 mg/dL (0.40-1.00); Glomerular Filtration Rate >60 (60-); Glucose, Blood 139 mg/dL (70-99); Potassium, Blood 3.7 mmol/L (3.5-5.5); Sodium, Blood 146 mmol/L (136-145); Total Protein, Blood 6.6 g/dL (6.4-8.2)
--- NOTE | 2018-10-25 08:35 | NUR ---
0715-ASSUMED CARE OF PT. PT IS SLEEPING SOUNDLY AT THIS TIME. OPENING EYES TO VOICE, ORIENTED. FOLLOWING COMMANDS. PT IS ON BIPAP / BACK UP RATE OF 12 FIO2 25%. DENIES PAIN AT THIS TIME. 0800-SEEN BY DR. SORIANO. UPDATED HIM OF PT'S STATUS. PT WILL BE TRANSFERED TO MEDICAL FLOOR.
--- NOTE | 2018-10-25 11:14 | NUR ---
0930-PT WAS OFF BIPAP FOR BREAKFAST. ON 2 LPM NC WITH O2 SAT 97% ON NC. PT WAS ABLE TO TOLERATE OFF BIPAP. 1100-PT IS BACK ON BIPAP.
--- NOTE | 2018-10-25 11:31 | NUR ---
Advance directive education/spiritual care visit conducted. Patient is sitting up in bed and eating breakfast. Patient does not remember the admit trigger requesting A.D. education but has some interest. Patient is weak and not able to have a long conversation about the topic so I speak briefly on the importance and process of the advance directive. Patient receives the A.D. form from me and states that she well go through it with her daughter when she arrives. I also talked with patient about her emotional/spiritual health. Patient states that she is not doing well and that she is basically homeless. She has had some help from the restoration but they can only do so much. She has been staying at the [facility]. Patient is quite tearful as she discusses the events that led to the homelessness and about the struggle this creates for her to maintain her health. I listen empathically, provide spiritual guidance and prayer. Patient responds well and shows signs of reduced stress.
[2018-10-25 11:58] LABS: Adenovirus Not Detected (NOT DETECT); Bordetella pertussis Not Detected (NOT DETECT); Chlamydophila pneumoniae Not Detected (NOT DETECT); Coronavirus 229E Not Detected (NOT DETECT); Coronavirus HKU1 Not Detected (NOT DETECT); Coronavirus NL63 Not Detected (NOT DETECT); Coronavirus OC43 Not Detected (NOT DETECT); Human Metapneumovirus Not Detected (NOT DETECT); Human Rhinovirus/Enterovirus Not Detected (NOT DETECT); Influenza A Not Detected (NOT DETECT); Influenza A/2009-H1 Not Detected (NOT DETECT); Influenza A/H1 Not Detected (NOT DETECT); Influenza A/H3 Not Detected (NOT DETECT); Influenza B Not Detected (NOT DETECT); Mycoplasma pneumoniae Not Detected (NOT DETECT); Parainfluenza Virus 1 Not Detected (NOT DETECT); Parainfluenza Virus 2 Not Detected (NOT DETECT); Parainfluenza Virus 3 Not Detected (NOT DETECT); Parainfluenza Virus 4 Not Detected (NOT DETECT); Respiratory Syncytial Virus Not Detected (NOT DETECT)
--- NOTE | 2018-10-25 14:04 | NUR ---
REPORT GIVEN TO TOÑO SMALL. PT WILL BE TRANSFERED TO ROOM 330.
--- NOTE | 2018-10-25 17:23 | NUR ---
SHIFT SUMMARY PT TRANSFERED TODAY FROM ICU TO MED FLOOR. SHE HAS BEEN ON NC @ 2 LPM SINCE ARRIVING. SHE IS TAKING A BREAK FROM BIPAP AND DOING WELL. SHE HAS DRANK SOME ICE WATER AND ATE SOME ORANGE SHERBET. SHE DID TRANSFER HERSELF FROM GURNEY TO BED AND DID WELL. DUE TO WEAKNESS I WOULD STILL DO A ONE PERSON ASSIST UNTIL SHE IS STRONGER.
--- NOTE | 2018-10-25 18:20 | NUR ---
LATE ENTRY 1415 HRS HANDOFF REPORT GIVEN BY ICU NURSE HEIDI. PT TRANSFERED TO FLOOR WNL ON NC 2 LPM. PT SELF TRANSFERED FROM GURNEY TO BED. WANTS A BREAK FROM BIPAP. ORIENTED TO FLOOR. PROVIDED WITH ICE WATER.
[2018-10-26] MEDS ORDERED: ROBITUSSIN COU237 ML PO (12:59)
[2018-10-26] MEDS ORDERED: NICO21TP TOP (13:00)
--- NOTE | 2018-10-26 13:35 | NUR ---
DISCHARGE NOTE NURSE FELICITAS FAXED DISCHARGE MEDICATIONS TO PREFERED PHARMACY. SHE PROVIDED HARDCOPY AND VERBAL INSTRUCTIONS FOR DISCHARGE RE: DIAGNOSES, DISCHARGE MEDICATIONS, AND FOLLOW UP APPOINTMENTS. FAMILY AND PT GATHERED PERSONAL POSSESSIONS. PT DRESSED IN PERSONAL CLOTHES. PT ASSISTED OUT BY DISTRIBUTING CLERK VIA WHEELCHAIR. IV DC'D WNL. PT HAD NO FURTHER QUESTIONS.
== END 2018-10-26 13:25 | disposition home or self-care (01) ==
LOC: ER 02:16 → ICUW 02:17 → ICUE 04:56 → MEDS 14:20 → ENPENDDIS 10-26 11:59 → MEDS 10-26 13:25
PROVIDERS: Emergency Medicine; ADMIT Internal Medicine
DX: J44.1 Chronic obstructive pulmonary disease with (acute) exacerbation (principal); J96.20 Acute and chronic respiratory failure, unspecified whether with hypoxia or hypercapnia; F17.210 Nicotine dependence, cigarettes, uncomplicated; F32.9 Major depressive disorder, single episode, unspecified; F41.9 Anxiety disorder, unspecified; M54.5 Low back pain; G89.29 Other chronic pain; Z59.0 Homelessness; Z79.82 Long term (current) use of aspirin; Z79.899 Other long term (current) drug therapy; Z95.0 Presence of cardiac pacemaker
CPT/HCPCS: 0099U; 36415; 71045; 80053; 83880; 84145; 85025; 85027; 85379; 87070; 87077; 87186; 87205; 93005; 93010; 94640; 94660; 94762; 96361; 96365; 96372; 96374; 96375; 96376; 99285-25; A9270; G0378; J0456; J1650; J2930; J7030; J7050

== ENCOUNTER 2018-10-31 03:36 | Observation (INO) | payer OTHER ==
[~2018-10-31] VITALS: Ht 157.5 cm; Wt 53.5 kg
[~2018-10-31 03:36] MED LIST changes: +NICO21TP TOP; +ROBITUSSIN COU237 ML PO
[2018-10-31 03:55] LABS: PCO2 Arterial 59.8 mmHg (35-45); PO2 Arterial 108 mmHg (80-100); pH Blood Arterial 7.39 (7.35-7.45)
[2018-10-31 04:15] LABS: BASOPHILS ABSOLUTE AUTO 0.05 K/mm3 (0.00-0.23); BASOPHILS PERCENT AUTO 1 % (0-2); EOSINOPHILS ABSOLUTE AUTO 0.01 K/mm3 (0.00-0.68); EOSINOPHILS PERCENT AUTO 0 % (0-6); Hemoglobin 13.5 g/dL (11.5-16.0); IMMATURE GRAN ABSOLUTE AUTO 0.09 K/mm3 (0.00-0.10); IMMATURE GRAN PERCENT AUTO 1 % (0-1); LYMPHOCYTES ABSOLUTE AUTO 2.55 K/mm3 (0.84-5.20); LYMPHOCYTES PERCENT AUTO 33 % (21-46); MONOCYTES ABSOLUTE AUTO 0.68 K/mm3 (0.16-1.47); MONOCYTES PERCENT AUTO 9 % (4-13); Mean Corpuscular HGB 30.1 pg (26.0-34.0); Mean Corpuscular HGB Conc 32.9 g/dL (31.5-36.5); Mean Corpuscular Volume 92 fL (80-100); Mean Platelet Volume 10.3 fL (9.1-12.4); NEUTROPHILS ABSOLUTE AUTO 4.29 K/mm3 (1.96-9.15); NEUTROPHILS PERCENT AUTO 56 % (41-73); Platelet Count 258 K/mm3 (150-400); RDW Coefficient Variation 14.1 % (11.7-14.2); RDW Standard Deviation 47.7 fL (35.1-46.3); Red Blood Cell Count 4.48 M/mm3 (3.80-5.20); White Blood Cell Count 7.67 K/mm3 (4.00-11.30)
[2018-10-31 04:29] LABS: Alanine Aminotransfer (ALT/SGP 37 U/L (12-78); Albumin, Blood 3.8 g/dL (3.4-5.0); Albumin/Globulin Ratio 1.2 (0.8-1.8); Alk Phos 80 U/L (50-136); Anion Gap 4 mmol/L (6-16); Aspartate Aminotrans (AST/SGOT 43 U/L (12-37); Bilirubin, Total 0.4 mg/dL (0.1-1.0); Blood Urea Nitrogen 18 mg/dL (8-24); Bun/Creatinine Ratio 24.3 (12.0-20.0); CO2, Blood 34 mmol/L (21-32); Calcium, Blood 8.3 mg/dL (8.5-10.1); Chloride, Blood 105 mmol/L (98-108); Creatinine, Blood 0.74 mg/dL (0.40-1.00); Globulin, Blood 3.1 g/dL (2.2-4.0); Glomerular Filtration Rate >60 (60-); Glucose, Blood 91 mg/dL (70-99); Potassium, Blood 3.8 mmol/L (3.5-5.5); Sodium, Blood 143 mmol/L (136-145); Total Protein, Blood 6.9 g/dL (6.4-8.2); Troponin I <0.015 ng/mL (0.000-0.040)
--- NOTE | 2018-10-31 10:49 | NUR ---
PT TO GO TO ROOM 308. ATTEMPT TO CALL REPORT TO LAISHA PATTERSON. SHE IS ON BREAK AND WILL CALL BACK/
[2018-10-31 11:55] LABS: Hematocrit 39.5 % (33.0-51.0); Hemoglobin 13.2 g/dL (11.5-16.0); Mean Corpuscular HGB 29.7 pg (26.0-34.0); Mean Corpuscular HGB Conc 33.4 g/dL (31.5-36.5); Mean Platelet Volume 9.9 fL (9.1-12.4); Platelet Count 244 K/mm3 (150-400); RDW Coefficient Variation 14.1 % (11.7-14.2); RDW Standard Deviation 45.4 fL (35.1-46.3); Red Blood Cell Count 4.45 M/mm3 (3.80-5.20); White Blood Cell Count 6.37 K/mm3 (4.00-11.30)
[2018-10-31 11:56] LABS: Mean Corpuscular Volume 89 fL (80-100)
[2018-10-31 12:18] LABS: Alanine Aminotransfer (ALT/SGP 32 U/L (12-78); Albumin, Blood 3.8 g/dL (3.4-5.0); Albumin/Globulin Ratio 1.4 (0.8-1.8); Alk Phos 77 U/L (50-136); Anion Gap 3 mmol/L (6-16); Aspartate Aminotrans (AST/SGOT 23 U/L (12-37); Bilirubin, Total 0.7 mg/dL (0.1-1.0); Blood Urea Nitrogen 16 mg/dL (8-24); Bun/Creatinine Ratio 25.1 (12.0-20.0); CO2, Blood 34 mmol/L (21-32); Calcium, Blood 8.4 mg/dL (8.5-10.1); Chloride, Blood 103 mmol/L (98-108); Creatinine, Blood 0.64 mg/dL (0.40-1.00); Globulin, Blood 2.8 g/dL (2.2-4.0); Glomerular Filtration Rate >60 (60-); Glucose, Blood 169 mg/dL (70-99); Potassium, Blood 3.4 mmol/L (3.5-5.5); Sodium, Blood 140 mmol/L (136-145); Total Protein, Blood 6.6 g/dL (6.4-8.2)
--- NOTE | 2018-10-31 14:50 | NUR ---
PATIENT SLEEPING. APPEARS COMFORTABLE. UNLABORED RESPIRATIONS.
--- NOTE | 2018-10-31 17:35 | NUR ---
PATIENT ARRIVES TO MEDICAL FLOOR AROUND 1130AM. ALERT. ORIENTED. USES BSC WITH ONE PERSON STANDBY ASSIST. ON OXYGEN. INTERMITTENT SLEEPING THIS SHIFT. FRIEND/RELATIVE BROUGHT IN PATIENTS 2 SMALL DOGS WHICH APPEARED COOPERATIVE IN ROOM. NO ACUTE CHANGES. WILL CONTINUE TO MONITOR.
--- NOTE | 2018-11-01 06:44 | NUR ---
No sob reported during this shift, HOB elevated, RT provided treatments as scheduled, call light in reach, 2L via NC, saline locked, rested comfortably will continue to assess and treat until share bsr with returning day nurse.
[2018-11-01] MEDS ORDERED: ALPR.5 PO (13:15)
--- NOTE | 2018-11-01 14:27 | NUR ---
PATIENT DISCHARGE: PATIENT DISCHARGED TO HOME THIS SHIFT. MEDICATION RECONCILIATION COMPLETED; MED LIST FAXED TO [facility]; HARD SCRIPT PROVIDED TO PATIENT FOR CONTROLLED SUBSTANCE. PATIENT TRANSPORTED TO EXIT BY [facility] STAFF WITH WHEELCHAIR AT 1335. PATIENT DEPARTED [facility] VIA PRIVATE AUTO.
== END 2018-11-01 13:35 | disposition home or self-care (01) ==
LOC: ER 03:36 → PCU 03:37 → MEDS 12:00 → ENPENDDIS 11-01 11:30 → MEDS 11-01 13:35
PROVIDERS: Emergency Medicine; ADMIT Internal Medicine
DX: J44.1 Chronic obstructive pulmonary disease with (acute) exacerbation (principal); J96.21 Acute and chronic respiratory failure with hypoxia; F41.0 Panic disorder [episodic paroxysmal anxiety]; F32.9 Major depressive disorder, single episode, unspecified; G40.909 Epilepsy, unspecified, not intractable, without status epilepticus; G89.29 Other chronic pain; M54.5 Low back pain; F17.210 Nicotine dependence, cigarettes, uncomplicated; Z99.81 Dependence on supplemental oxygen; Z99.89 Dependence on other enabling machines and devices; Z79.899 Other long term (current) drug therapy; Z79.51 Long term (current) use of inhaled steroids; Z79.84 Long term (current) use of oral hypoglycemic drugs; Z79.52 Long term (current) use of systemic steroids
CPT/HCPCS: 36415; 36600; 71045; 80053; 82803; 84484; 85025; 85027; 93005; 93010; 94640; 94644; 94660; 94760; 94762; 96372; 96374; 96375; 96376; 99285-25; A9270; G0378; J1100; J1650; J2930

== ENCOUNTER 2018-11-08 04:29 | Emergency (ER) | payer OTHER ==
[~2018-11-08] VITALS: Ht 157.5 cm; Wt 50.4 kg
[~2018-11-08 04:29] MED LIST changes: +ALPR.5 PO
[2018-11-08 04:46] LABS: BASOPHILS ABSOLUTE AUTO 0.04 K/mm3 (0.00-0.23); BASOPHILS PERCENT AUTO 1 % (0-2); EOSINOPHILS PERCENT AUTO 0 % (0-6); Hemoglobin 13.8 g/dL (11.5-16.0); IMMATURE GRAN ABSOLUTE AUTO 0.08 K/mm3 (0.00-0.10); IMMATURE GRAN PERCENT AUTO 1 % (0-1); LYMPHOCYTES ABSOLUTE AUTO 2.46 K/mm3 (0.84-5.20); LYMPHOCYTES PERCENT AUTO 29 % (21-46); MONOCYTES ABSOLUTE AUTO 0.69 K/mm3 (0.16-1.47); MONOCYTES PERCENT AUTO 8 % (4-13); Mean Corpuscular HGB 29.9 pg (26.0-34.0); Mean Corpuscular HGB Conc 32.9 g/dL (31.5-36.5); Mean Corpuscular Volume 91 fL (80-100); Mean Platelet Volume 9.9 fL (9.1-12.4); NEUTROPHILS ABSOLUTE AUTO 5.27 K/mm3 (1.96-9.15); NEUTROPHILS PERCENT AUTO 62 % (41-73); Platelet Count 200 K/mm3 (150-400); RDW Coefficient Variation 14.3 % (11.7-14.2); RDW Standard Deviation 47.7 fL (35.1-46.3); Red Blood Cell Count 4.62 M/mm3 (3.80-5.20); White Blood Cell Count 8.54 K/mm3 (4.00-11.30)
[2018-11-08 04:47] LABS: Base Excess Venous 5.1 mmol/L; Bicarbonate Venous 27.7 mmol/L (24.0-30.0); PCO2 Venous 54.9 mmHg (38-42); PO2 Venous 95.1 mmHg (38-42); pH Blood Venous 7.36 (7.34-7.37)
[2018-11-08 05:15] LABS: Alanine Aminotransfer (ALT/SGP 22 U/L (12-78); Albumin, Blood 3.8 g/dL (3.4-5.0); Albumin/Globulin Ratio 1.4 (0.8-1.8); Alk Phos 74 U/L (50-136); Anion Gap 6 mmol/L (6-16); Aspartate Aminotrans (AST/SGOT 19 U/L (12-37); Bilirubin, Total 0.4 mg/dL (0.1-1.0); Blood Urea Nitrogen 14 mg/dL (8-24); Bun/Creatinine Ratio 16.6 (12.0-20.0); CO2, Blood 30 mmol/L (21-32); Calcium, Blood 8.3 mg/dL (8.5-10.1); Chloride, Blood 108 mmol/L (98-108); Creatinine, Blood 0.84 mg/dL (0.40-1.00); Globulin, Blood 2.8 g/dL (2.2-4.0); Glomerular Filtration Rate >60 (60-); Glucose, Blood 117 mg/dL (70-99); Sodium, Blood 144 mmol/L (136-145); Total Protein, Blood 6.6 g/dL (6.4-8.2); Troponin I <0.015 ng/mL (0.000-0.040)
[2018-11-08] MEDS ORDERED: Ativan0.5 MG PO (05:44)
== END 2018-11-08 07:36 | disposition home or self-care (01) ==
LOC: ER 04:29
PROVIDERS: Emergency Medicine
DX: J44.9 Chronic obstructive pulmonary disease, unspecified (principal); F41.9 Anxiety disorder, unspecified; F17.200 Nicotine dependence, unspecified, uncomplicated; Z79.82 Long term (current) use of aspirin; Z79.899 Other long term (current) drug therapy
CPT/HCPCS: 71045; 80053; 82803; 84484; 85025; 93005; 93010; 94644; 96360; 99285-25; J7030

== ENCOUNTER 2019-04-23 08:12 | Inpatient (IN) | payer OTHER ==
[~2019-04-23] VITALS: Ht 157.5 cm; Wt 50.2 kg
[~2019-04-23 08:12] MED LIST changes: +Ativan0.5 MG PO
[2019-04-23 09:01] LABS: BASOPHILS ABSOLUTE AUTO 0.04 K/mm3 (0.00-0.23); BASOPHILS PERCENT AUTO 0 % (0-2); EOSINOPHILS ABSOLUTE AUTO 0.01 K/mm3 (0.00-0.68); EOSINOPHILS PERCENT AUTO 0 % (0-6); Hematocrit 47.3 % (33.0-51.0); Hemoglobin 15.5 g/dL (11.5-16.0); IMMATURE GRAN ABSOLUTE AUTO 0.02 K/mm3 (0.00-0.10); IMMATURE GRAN PERCENT AUTO 0 % (0-1); LYMPHOCYTES PERCENT AUTO 9 % (21-46); MONOCYTES ABSOLUTE AUTO 0.71 K/mm3 (0.16-1.47); MONOCYTES PERCENT AUTO 7 % (4-13); Mean Corpuscular HGB 29.1 pg (26.0-34.0); Mean Corpuscular HGB Conc 32.8 g/dL (31.5-36.5); Mean Platelet Volume 10.1 fL (9.1-12.4); NEUTROPHILS ABSOLUTE AUTO 8.17 K/mm3 (1.96-9.15); NEUTROPHILS PERCENT AUTO 83 % (41-73); Platelet Count 288 K/mm3 (150-400); RDW Coefficient Variation 13.6 % (11.7-14.2); Red Blood Cell Count 5.32 M/mm3 (3.80-5.20); White Blood Cell Count 9.85 K/mm3 (4.00-11.30)
[2019-04-23 09:14] LABS: Alanine Aminotransfer (ALT/SGP 24 U/L (12-78); Albumin, Blood 4.1 g/dL (3.4-5.0); Albumin/Globulin Ratio 1.1 (0.8-1.8); Alk Phos 134 U/L (50-136); Anion Gap 6 mmol/L (6-16); Aspartate Aminotrans (AST/SGOT 22 U/L (12-37); Bilirubin, Total 0.4 mg/dL (0.1-1.0); Blood Urea Nitrogen 24 mg/dL (8-24); Bun/Creatinine Ratio 32.3 (12.0-20.0); CO2, Blood 29 mmol/L (21-32); Calcium, Blood 9.5 mg/dL (8.5-10.1); Chloride, Blood 108 mmol/L (98-108); Creatinine, Blood 0.74 mg/dL (0.40-1.00); Globulin, Blood 3.6 g/dL (2.2-4.0); Glomerular Filtration Rate >60 (60-); Glucose, Blood 124 mg/dL (70-99); Potassium, Blood 3.8 mmol/L (3.5-5.5); Sodium, Blood 143 mmol/L (136-145); Total Protein, Blood 7.7 g/dL (6.4-8.2)
[2019-04-23 09:19] LABS: Mean Corpuscular Volume 89 fL (80-100)
[2019-04-23] MEDS ORDERED: ATOR20 PO (09:41)
[2019-04-23] MEDS ORDERED: AMLO5 PO (09:41)
[2019-04-23] MEDS ORDERED: CLON.1 PO (09:42)
[2019-04-23] MEDS ORDERED: DESV50 PO (09:42)
[2019-04-23 10:32] LABS: Source, Urine Clean Catch
[2019-04-23 10:39] LABS: Bilirubin, Urine Neg (Neg); Blood, Urine Neg (Neg); Glucose Qualitative, Urine Neg (Neg); Ketones, Urine Neg (Neg); Leukocyte Esterase, Urine 2+ (Neg); Nitrite, Urine Neg (Neg); Protein, Urine 1+ (Neg); Urobilinogen, Urine 2+ (Normal); pH, Urine 6.5 (5.0-8.0)
[2019-04-23 11:17] LABS: Appearance, Urine Clear (Clear); Color, Urine Yellow (P-Yellow)
[2019-04-23 11:20] LABS: Bacteria Rare /hpf; Calcium Oxalate Crystals Few /hpf; Red Blood Cells, Urine 0-2 /hpf (0-2); Squamous Epithelial Cells Not Seen /hpf (Few)
[2019-04-23] MEDS ORDERED: Flovent Disku100 MCG INH (11:54)
[2019-04-23] MEDS ORDERED: ANORO ELLIPTA1 EACH INH (11:54)
[2019-04-23] MEDS ORDERED: BUPROPION XL150 M1 PO (11:55)
[2019-04-23] MEDS ORDERED: CARVEDILOL3.125 MG PO (11:56)
--- NOTE | 2019-04-23 17:58 | NUR ---
SHIFT SUMMARY PT A&OX4, VSS, 1LNC, TELE SINUS @ 70, HOME CPAP AT BEDSIDE. PLAN FOR NPO AT MIDNIGHT AND SBO FOLLOW THROUGH IN AM. PAIN MANAGED WITH 25 MCGS FENT. LEONA CL DIET; MINIMAL INTAKE. NAUSEA TX'D WITH ZOFRAN X1. WILL REPORT TO ONCOMING NOC RN.
[2019-04-24 02:41] LABS: Source, Urine Clean Catch
[2019-04-24 02:58] LABS: Bilirubin, Urine Neg (Neg); Blood, Urine Neg (Neg); Glucose Qualitative, Urine Neg (Neg); Ketones, Urine 3+ (Neg); Leukocyte Esterase, Urine 1+ (Neg); Nitrite, Urine Neg (Neg); Protein, Urine 1+ (Neg); Specific Gravity, Urine 1.025 (1.003-1.022); Urobilinogen, Urine 1+ (Normal)
[2019-04-24 03:07] LABS: Appearance, Urine Clear (Clear); Color, Urine Yellow (P-Yellow)
[2019-04-24 03:08] LABS: Bacteria Rare /hpf; Calcium Oxalate Crystals Mod /hpf; Red Blood Cells, Urine Not Seen /hpf (0-2); Squamous Epithelial Cells Rare /hpf (Few); White Blood Cells, Urine 0-2 /hpf (0-5)
[2019-04-24 04:56] LABS: BASOPHILS ABSOLUTE AUTO 0.03 K/mm3 (0.00-0.23); BASOPHILS PERCENT AUTO 0 % (0-2); EOSINOPHILS ABSOLUTE AUTO 0.01 K/mm3 (0.00-0.68); EOSINOPHILS PERCENT AUTO 0 % (0-6); Hematocrit 49.9 % (33.0-51.0); Hemoglobin 15.6 g/dL (11.5-16.0); IMMATURE GRAN ABSOLUTE AUTO 0.02 K/mm3 (0.00-0.10); IMMATURE GRAN PERCENT AUTO 0 % (0-1); LYMPHOCYTES ABSOLUTE AUTO 1.25 K/mm3 (0.84-5.20); LYMPHOCYTES PERCENT AUTO 16 % (21-46); MONOCYTES ABSOLUTE AUTO 0.71 K/mm3 (0.16-1.47); MONOCYTES PERCENT AUTO 9 % (4-13); Mean Corpuscular HGB 29.2 pg (26.0-34.0); Mean Corpuscular HGB Conc 31.3 g/dL (31.5-36.5); NEUTROPHILS ABSOLUTE AUTO 5.62 K/mm3 (1.96-9.15); NEUTROPHILS PERCENT AUTO 74 % (41-73); RDW Coefficient Variation 13.8 % (11.7-14.2); RDW Standard Deviation 47.4 fL (35.1-46.3); Red Blood Cell Count 5.34 M/mm3 (3.80-5.20); White Blood Cell Count 7.64 K/mm3 (4.00-11.30)
[2019-04-24 05:00] LABS: Mean Corpuscular Volume 93 fL (80-100); Mean Platelet Volume 10.8 fL (9.1-12.4); Platelet Count 224 K/mm3 (150-400)
[2019-04-24 05:16] LABS: Magnesium, Blood 1.8 mg/dL (1.6-2.4)
[2019-04-24 05:17] LABS: Alanine Aminotransfer (ALT/SGP 49 U/L (12-78); Albumin, Blood 3.6 g/dL (3.4-5.0); Alk Phos 124 U/L (50-136); Anion Gap 6 mmol/L (6-16); Aspartate Aminotrans (AST/SGOT 51 U/L (12-37); Bilirubin, Total 0.4 mg/dL (0.1-1.0); Blood Urea Nitrogen 17 mg/dL (8-24); Bun/Creatinine Ratio 28.3 (12.0-20.0); CO2, Blood 26 mmol/L (21-32); Calcium, Blood 8.7 mg/dL (8.5-10.1); Chloride, Blood 112 mmol/L (98-108); Globulin, Blood 3.6 g/dL (2.2-4.0); Glomerular Filtration Rate >60 (60-); Glucose, Blood 91 mg/dL (70-99); Potassium, Blood 3.9 mmol/L (3.5-5.5); Sodium, Blood 144 mmol/L (136-145); Total Protein, Blood 7.2 g/dL (6.4-8.2)
[2019-04-24 06:02] LABS: International Normalized Ratio 1.05; Prothrombin Time Results 11.2 Sec (9.7-11.5)
--- NOTE | 2019-04-24 06:27 | NUR ---
SHIFT SUMMARY: CHELITA HAS RESTED DURING MOST OF THE SHIFT. SHE DOES WAKE UP COMPLAINING OF PAIN FOR WHICH SHE STATES THE FENTANYL IS EFFECTIVE. SHE HAS ALSO COMPLAINED OF NAUSEA FOR WHICH SHE STATES THE ZOFRAN IS EFFECTIVE. SHE IS A 1 PERSON STANDBY ASSIST TO THE BATHROOM. SHE IS CONTINENT OF URINE, DENIES PASSING ANY FLATUS OR BM. SHE IS NPO IN ANTICIPATION OF THE SMALL BOWEL FOLLOW THROUGH THIS MORNING. SHE USES HER CALL LIGHT APPROPRIATELY. SHE DID NOT WEAR HER CPAP DURING THE NIGHT. CONTINUOUS PULSE OX IN PLACE. SHE IS MAINTAINING HER OXYGEN SATURATIONS ON 3 L VIA NC. SHE IS SITTING AT THE SIDE OF HER BED WATCHING TV.
--- NOTE | 2019-04-24 16:31 | NUR ---
SHIFT SUMMARY PT A&OX4, VSS, TELE SINUS @ 95, CPAP W/2L OXYGEN BLEED, BIOX AT BEDSIDE. S/P SB FOLLOW THRU, SINCE RETURNING PT HAS HAD MULTIPLE BROWN LIQUID BM'S; VOIDING WELL. N&V TX'D WITH ZOFRAN; TOLERATING SIPS OF WATER. PAIN MANAGED PER EMAR. AMB SBA TO BRP. WILL REPORT TO ONCOMING RONNY PATTERSON.
--- NOTE | 2019-04-25 00:05 | NUR ---
REPORT GIVEN TO YESENIA SHIPMAN. PT RESTING COMFORTABLY ON HER LEFT SIDE. O2 SATURATION AT 98% ON 2 L NC.
--- NOTE | 2019-04-25 06:00 | NUR ---
SHIFT SUMMARY PT RESTING WELL THIS AM. AAOX4. DISCOMFORT CONTROLLED WITH 50mcg FENTANYL X2 SINCE MIDNIGHT. NO NAUSEA/EMESIS. ANXIETY CONTROLLED WITH 1MG IV ATIVAN X1 THIS AM. IVF PER ORDERS. SIPS CLEARS + GOOD URINE OUTPUT. TELEMETRY IN PLACE, NSR IN 70s T/O NIGHT. NO ACUTE CHANGES OVER NIGHT. PT RESTING AT THIS TIME POST FENTANYL WITH CALL LIGHT IN REACH.
--- NOTE | 2019-04-25 09:30 | NUR ---
DR BARTON RECENTLY HERE TO SEE PT, DISCUSSED PT'S STATUS. FAMILY WAS IN ROOM.
--- NOTE | 2019-04-25 10:37 | NUR ---
DR VIVAS HERE TO SEE PT.
--- NOTE | 2019-04-25 11:03 | NUR ---
PT HAD SMALL AMT OF LIQUID BM. PT REPORTED EARLIER THAT SHE WAS PASSING GAS.
--- NOTE | 2019-04-25 11:39 | NUR ---
PT IV LEAKING EARLIER WHEN DR VIVAS HERE, REPORTED IF PT TOLERATES F.L. LUNCH THAT SHE MAY GO HOME LATER TODAY. PT RECENTLY SMALL AMT OF LIQUID STOOL. PT REPORTS SLIGHT NAUSEA "NOT BAD". REPORTS MINIMAL PAIN AFTER HAVING LIQUID BM. DR BARTON NOTIFIED. SEE ORDERS. PT REPORTED TOLERATING C.L. DIET EARLIER.
--- NOTE | 2019-04-25 13:52 | NUR ---
DR BARTON TO SEE PT, FAMILY PRESENT. REPORTS WILL WRITE D/C ORDERS.
[2019-04-25] MEDS ORDERED: ONDA4ODT MM (14:29)
[2019-04-25] MEDS ORDERED: LEVFLO500 PO (14:30)
--- NOTE | 2019-04-25 14:40 | NUR ---
DISCHARGE: PT TOLERATED F.L. DIET WITH NO NAUSEA OR PAIN. PT AMBULATING WITHOUT DIFFICULTY. PT VOIDING AND PASSING GAS. PT CLEARED BY SURGERY EARLIER IF TOLERATED F.L. DIET THAT SHE COULD GO HOME. PT/FAMILY REPORTS UNDERSTANDING OF DISCHARGE INSTRUCTIONS, GIVEN SCIPT FOR ABX, OTHER MED (ZOFRAN) CALLED TO PHARMACY OF PT'S CHOICE.
== END 2019-04-25 14:40 | disposition home or self-care (01) | DRG 389 ==
LOC: ER 08:12 → SURS 11:04
PROVIDERS: Emergency Medicine; Nurse Practitioner Acute Care; ADMIT Family Medicine
DX: K56.600 Partial intestinal obstruction, unspecified as to cause (principal); N39.0 Urinary tract infection, site not specified; J44.9 Chronic obstructive pulmonary disease, unspecified; F41.1 Generalized anxiety disorder; I10 Essential (primary) hypertension; G40.909 Epilepsy, unspecified, not intractable, without status epilepticus; I25.10 Atherosclerotic heart disease of native coronary artery without angina pectoris; G47.33 Obstructive sleep apnea (adult) (pediatric); K21.9 Gastro-esophageal reflux disease without esophagitis; F32.9 Major depressive disorder, single episode, unspecified; F17.210 Nicotine dependence, cigarettes, uncomplicated; Z95.0 Presence of cardiac pacemaker
CPT/HCPCS: 36415; 74177; 74250; 80053; 81001; 83690; 83735; 85025; 85610; 87077; 87086; 87186; 94640; 94760; 94762; 96361; 96374-59; 96375; 99284-25; J1885; J2060; J2405; J3010; J7030; Q9967

== ENCOUNTER → 2019-07-14 | Outpatient (CLI) | payer OTHER ==
[~2019-07-14] MED LIST changes: +BUPROPION XL150 M1 PO; +CARVEDILOL3.125 MG PO; +CLON.1 PO; +DESV50 PO; +LEVFLO500 PO; +ONDA4ODT MM
== END | disposition home or self-care (01) ==
LOC: LAB 17:45 → LAB SHORT 17:45
DX: L72.3 Sebaceous cyst (principal)
CPT/HCPCS: 87070; 87075; 87076; 87205